=== PATIENT | male | born 1970 | race Caucasian/White ===

== ENCOUNTER 2016-12-29 06:06 | Emergency (ER) | payer OTHER ==
[~2016-12-29] VITALS: Ht 174 cm; Wt 69.6 kg
[~2016-12-29 06:06] MED LIST: AMOXICILLIN/CL875 MG OR; FLEXERIL PO; LORTAB 5/3255 MG PO; LORTAB5 OR; NO HOME MEDS; TESSALON200 MG PO
[2016-12-29] MEDS ORDERED: PERCOCET 5/325M1 TAB PO (07:10)
[2016-12-29 07:36] VITALS: BP 122/80
== END 2016-12-29 07:36 | disposition home or self-care (01) | DRG 563 ==
LOC: ED 06:06
PROC: 2W3FX1Z Immobilization of Left Hand using Splint (ICD-10-PCS; principal; 2016-12-29)
DX: S62.307A Unspecified fracture of fifth metacarpal bone, left hand, initial encounter for closed fracture (principal); W18.30XA Fall on same level, unspecified, initial encounter; Y93.9 Activity, unspecified; Y92.009 Unspecified place in unspecified non-institutional (private) residence as the place of occurrence of the external cause